=== PATIENT | female | born 1970 | race Caucasian/White ===

== ENCOUNTER 2019-08-21 11:41 | Outpatient (CLI) | payer BC ==
--- NOTE | 2019-09-03 14:25 | MMO ---
Bilateral MAMMO Bilat Screen [facility]. CLINICAL HISTORY: Patient is 49 years old and is seen for screening. The patient has the following family history of breast cancer: sister, at age 38. The patient has no personal history of cancer. The patient has a history of Breast reduction in 1986. VIEWS: The views performed were: bilateral craniocaudal with tomosynthesis and bilateral mediolateral oblique with tomosynthesis. FILMS COMPARED: The present examination has been compared to prior imaging studies performed at [facility] on 10/02/2014, 10/29/2015, 05/01/2016 and 05/31/2018. This study has been interpreted with the assistance of computer-aided detection. MAMMOGRAM FINDINGS: There are scattered fibroglandular densities. There are no suspicious masses, suspicious calcifications, or new areas of architectural distortion. IMPRESSION: THERE IS NO MAMMOGRAPHIC EVIDENCE OF MALIGNANCY. A ROUTINE FOLLOW-UP MAMMOGRAM IN 1 YEAR IS RECOMMENDED. THE RESULTS OF THIS EXAM WERE SENT TO THE PATIENT. ACR BI-RADS Category 1 - Negative MAMMOGRAPHY NOTE: 1. A negative mammogram report should not delay a biopsy if a dominant of clinically suspicious mass is present. 2. Approximately 10% to 15% of breast cancers are not detected by mammography. 3. Adenosis and dense breasts may obscure an underlying neoplasm. Reported by: KATHIE SUH MD Electonically Signed: [id number]
== END 2019-08-21 11:42 | disposition home or self-care (01) ==
LOC: BICMAMMO 11:41
DX: Z12.31 Encounter for screening mammogram for malignant neoplasm of breast (principal); Z80.3 Family history of malignant neoplasm of breast; Z98.82 Breast implant status
CPT/HCPCS: 77063; 77067

== ENCOUNTER 2019-09-19 14:38 | Outpatient (CLI) | payer BC ==
--- NOTE | 2019-09-19 16:20 | RAD ---
LUMBAR SPINE RADIOGRAPH SERIES TWO - THREE VIEW. 09/19/19 INDICATION: Low back pain for four months. FINDINGS: Grade II spondylolisthesis at L5-S1, with prominent narrowing of the disc space and end plate scleros is. Associated facet osteoarthritis is present and there is lucency to indicate L5 level pars defect. No compression fracture. Mild multilevel end plate osteophytosis and facet sclerosis is present thro ughout the lumbar spine. IMPRESSION: Grade II spondylolisthesis, L5-S1, with associated pars defect and facet osteoarthritis. POS: C
== END 2019-09-19 14:39 | disposition home or self-care (01) ==
LOC: SCSRAD 14:38
DX: M54.5 Low back pain (principal); M47.817 Spondylosis without myelopathy or radiculopathy, lumbosacral region; M43.17 Spondylolisthesis, lumbosacral region
CPT/HCPCS: 72100

== ENCOUNTER 2020-09-02 12:57 | Outpatient (CLI) | payer BC ==
--- NOTE | 2020-09-02 14:45 | MMO ---
Bilateral MAMMO Bilat Screen [facility]. CLINICAL HISTORY: Patient is 50 years old and is seen for screening. The patient has the following family history of breast cancer: sister, at age 38. The patient has no personal history of cancer. The patient has a history of Breast reduction in 1986. VIEWS: The views performed were: bilateral craniocaudal with tomosynthesis and bilateral mediolateral oblique with tomosynthesis. FILMS COMPARED: The present examination has been compared to prior imaging studies performed at [facility] on 10/29/2015, 05/01/2016 and 05/31/2018, and at [facility] on 08/21/2019. This study has been interpreted with the assistance of computer-aided detection. MAMMOGRAM FINDINGS: There are scattered fibroglandular densities. There is a stable oval mass with circumscribed margins seen in the lower-outer region of the right breast. There are no suspicious masses, suspicious calcifications, or new areas of architectural distortion. IMPRESSION: THERE IS NO MAMMOGRAPHIC EVIDENCE OF MALIGNANCY. A ROUTINE FOLLOW-UP MAMMOGRAM IN 1 YEAR IS RECOMMENDED. THE RESULTS OF THIS EXAM WERE SENT TO THE PATIENT. ACR BI-RADS Category 2 - Benign finding MAMMOGRAPHY NOTE: 1. A negative mammogram report should not delay a biopsy if a dominant of clinically suspicious mass is present. 2. Approximately 10% to 15% of breast cancers are not detected by mammography. 3. Adenosis and dense breasts may obscure an underlying neoplasm. Reported by: JASON SIMS MD Electonically Signed: [id number]
== END 2020-09-02 12:58 | disposition home or self-care (01) ==
LOC: BICMAMMO 12:57
DX: Z12.31 Encounter for screening mammogram for malignant neoplasm of breast (principal); Z80.3 Family history of malignant neoplasm of breast; Z98.890 Other specified postprocedural states
CPT/HCPCS: 77063; 77067

== ENCOUNTER 2021-09-08 12:09 | Outpatient (CLI) | payer BC | END 2021-09-08 12:10 | disposition home or self-care (01) | LOC: BICMAMMO 12:09 | DX: Z12.31 Encounter for screening mammogram for malignant neoplasm of breast (principal); Z80.3 Family history of malignant neoplasm of breast; Z98.890 Other specified postprocedural states | CPT/HCPCS: 77063; 77067 ==

== ENCOUNTER 2024-01-03 14:33 | Outpatient (CLI) | payer BC | END 2024-01-03 14:34 | disposition home or self-care (01) | LOC: BICMAMMO 14:33 | PROVIDERS: ATTEND Family Medicine | DX: Z12.31 Encounter for screening mammogram for malignant neoplasm of breast (principal); Z80.3 Family history of malignant neoplasm of breast; Z98.890 Other specified postprocedural states | CPT/HCPCS: 77063; 77067 ==